=== PATIENT | male | born 1930 | race Caucasian/White ===

== ENCOUNTER 2016-09-18 15:39 | Inpatient (IN) | payer OTHER, MEDICARE ==
--- NOTE | ~2016-09-18 | CN ---
Consultation Report [facility] [address] [place]. [address] NAME: ZA LEIGH : 31 STATUS : ADM IN [facility]#: [id number] AGE: 85 ADM/REG DATE : 09/18/16 MR#: [id number] REPORT SERV DATE: 09/19/16 DICTATED BY: RIMA ALEJANDRO DATE: 09/19/16 REPORT STATUS : Draft TRANSCRIBED BY: MODEvelio DATE: 09/19/16 NEUROLOGICAL CONSULTATION-EVALUATION DATE OF CONSULTATION: 09/19/2016 REASON FOR CONSULTATION: Probable cerebrovascular accident, history of atrial fibrillation. HISTORY OF PRESENT ILLNESS: This is an 85-year-old male with known history of atrial fibrillation, carotid artery disease, hypertension, hyperlipidemia, ischemic cardiomyopathy with history of recurrent paroxysmal atrial fibrillation, on dabigatran, who was brought by the patient's family after it was noted that the patient was confused. Although, the patient has mild underlying dementia, as per family, the patient was acting differently which alerted the patient's children, one of whom is a retired nurse, said the patient may be having stroke-like symptoms. On admission to the emergency room, the patient's CT scan of the head showed no evidence of acute changes except for diffuse atrophy. The symptoms apparently had improved upon arrival to the emergency room. The patient however was noted to be performing the test in the emergency room appropriately, especially showing possible left-sided weakness. PAST MEDICAL HISTORY: Also significant for history of obstructive sleep apnea, the patient has not been compliant with CPAP, hypertension, hyperlipidemia, history of ventricular tachycardia, prior AICD placement, status post CABG, ischemic cardiomyopathy, ejection fraction of 40% currently, coronary artery disease. The patient had been on Coumadin; however, on admission, the patient's medication do not list Coumadin. PAST SURGICAL HISTORY: Pacemaker defibrillator placement, cardiac cath, CABG x3 in 2004, left cataract surgery, EP study in 2010, history of appendectomy. FAMILY HISTORY: Significant history of stroke in patient's mother. The patient's father had history of heart attack. SOCIAL HISTORY: The patient lives alone, however, is very close to the premises of his children and they monitor him on the video monitor. The patient refused to move into a facility or move to live with his children. His 12 years ago. The patient's daughter stated that the patient has been depressed since that time. He does have two dogs whom the patient is attached to and who sleep with him. He is a retired , served in [place], and the patient has advance directives and is a DNR. On admission, the patient's EKG showed atrial paced left bundle, which was consistent with prior EKGs. ALLERGIES: NO KNOWN ALLERGIES. HOME MEDICATIONS: Included aspirin 81 mg, dabigatran, atorvastatin 80 mg, carvedilol 25 mg b.i.d., Lyrica 150 b.i.d., sotalol 80 mg daily, Namenda 10 mg b.i.d. - generic, multivitamin Consultation Report [address] [place]. [address] NAME: ZA LEIGH : 31 STATUS : ADM IN [facility]#: [id number] AGE: 85 ADM/REG DATE : 09/18/16 MR#: [id number] REPORT SERV DATE: 09/19/16 DICTATED BY: RIMA ALEJANDRO DATE: 09/19/16 REPORT STATUS : Draft TRANSCRIBED BY: LUIZ DATE: 09/19/16 without minerals and acetamide, vitamin B complex and C, pantoprazole 40 mg. REVIEW OF SYSTEMS: As per the patient's family, the patient has been followed by Dr. Ernandez, who is his neurologist, was diagnosed with dementia approximately three years, has been on amantadine. The patient's last appointment was six months ago. The patient was scheduled to see Dr. Ernandez in the next few days. The patient's daughters noted that the patient had increased cough in the last day. Also as per one of the patient's daughters, his urine has been discolored "brown." Other review of systems was negative. The patient has been independent and active. As mentioned above, the patient has obstructive sleep apnea, does not use his CPAP, does not have any difficulty with bowel or bladder control, and the patient had no recent complaints. The rest of 14 points of review of system was negative. No history of recent head trauma or falling. PHYSICAL EXAMINATION: VITAL SIGNS: Blood pressure 133/62, pulse was 68, respirations 18, temperature was 98.6. HEAD AND NECK: Showed him to be normocephalic. There was no evidence of trauma. Auscultation of the neck showed no evidence of bruits. The patient appeared asleep, was difficult to arouse although intermittently would respond appropriately answering questions, knew his daughters' names. He would readily fall asleep, however at times, appeared to resist eye opening. The patient did not appear in acute distress. CHEST: Symmetrical. LUNGS: Showed decreased breath sounds at the bases. ABDOMEN: Soft, nontender. EXTREMITIES: Showed no clubbing, cyanosis. There was no peripheral edema. NEUROLOGICAL: With the patient being not cooperative, was incomplete. However, at this point, it appears that the patient did not have any focal deficits on cranial nerve examination. His eyes appeared midline. Pupils were reactive to light and accommodation. Extraocular movements, the patient directed eyes to the voice and his eyes crossed midline. MOTOR EXAM: Showed questionable decrease of spontaneous movements in the line of the left arm. Both lower extremities were moving symmetrically. Deep tendon reflexes were decreased in lower extremities. As per patient's daughter, the patient has history of "peripheral neuropathy," it is not clear from what source, could be medication related. The patient is not diabetic. LABORATORY STUDIES: On admission showed sodium 143, potassium 3.9, chloride 105, BUN 20, creatinine 0.85, glucose 93, magnesium 2.4. WBC count 5.4, hemoglobin 13.3, hematocrit 40.5, platelet count 101,000. Troponin 0.05. Portable chest x-rays showed no focal abnormalities, cardiac silhouette is in upper limit of normal, status post CABG, read as no evidence of cardiopulmonary problems. The patient's CT scan of the head as mentioned above, showed no acute changes. Comprehensive metabolic as mentioned above. CPK-MB fraction 0.05, slightly elevated. CPK was 112. Magnesium 2.4. 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 The Consultation Report [address] [place]. [address] NAME: ZA LEIGH : 31 STATUS : ADM IN PAT#: [id number] AGE: 85 ADM/REG DATE : 09/18/16 MR#: [id number] REPORT SERV DATE: 09/19/16 DICTATED BY: RIMA ALEJANDRO DATE: 09/19/16 REPORT STATUS : Draft TRANSCRIBED BY: LUIZ DATE: 09/19/16 patient has increased risk of cerebrovascular accident, which include atrial fibrillation, paroxysmal atrial fibrillation, history of pacemaker defibrillator placement, status post CABG, and evidence of coronary artery disease. Workup for stroke should proceed with imaging studies, limited from pacemaker and defibrillator presence. We will recommend to obtain carotid ultrasound and monitor the patient for changes in his neurological status. Serum lipid panel. Obtain additional history concerning the patient's medication. Decrease patient's Lyrica if the patient has been on it, do not stop Lyrica abruptly. The patient may benefit from decreasing couple of doses to monitor his response to see if the patient becomes more alert. EEG to rule out the presence of encephalopathy. Continue telemetry. UA to rule out urinary tract infection and ABGs to rule out hypoxemia. The patient has history of obstructive sleep apnea, has been noncompliant with his CPAP, and we will monitor the patient with you. Thank you for allowing us to participate in this patient's care. ALYSSA/LUIZ Rima Alejandro MD / [id number] CC: Cristal Coppola M.D. UNKNOWN
--- NOTE | ~2016-09-18 | HP ---
History And Physical [address] [place]. [address] NAME: ZA GUERRERO : 32 STATUS : ADM IN [facility]#: [id number] AGE: 85 ADM/REG DATE : 09/18/16 MR#: [id number] REPORT SERV DATE: 09/18/16 DICTATED BY: MARIA ESTHER BECERRA DATE: 09/18/16 REPORT STATUS : Draft TRANSCRIBED BY: MODEvelio DATE: 09/18/16 DATE OF ADMISSION: 09/18/2016 CHIEF COMPLAINT: Left arm weakness and mild confusion. HISTORY OF PRESENT ILLNESS: The patient is an 85-year-old male with past medical history of AFib; pacer; V-tach history; peripheral vascular disease; carotid artery disease; hypertension; hyperlipidemia; chronic back pain; ischemic cardiomyopathy, EF 40% through 45%; paroxysmal atrial fibrillation, on Coumadin, who presents after having acute change in mental status and weakness. Symptoms were majority on left side, but last normal seen was last night. He was actually confused and to the point where he was somewhat unrest, which was atypical for his normal presentation. The patient denies any pain, discomfort, or radiating symptoms. No nausea, vomiting, diarrhea, fever, chills, shortness of breath, or chest pains. There is no worsening or relieving of symptoms. Symptom is actually improved since his arrival at [facility] from initial presentation with an evaluation by emergency room to evaluation by disposition as the strength becomes more improved, he is able to perform. Improved vocal strength, but does have notable neuro deficits in the form of mcwzzs-nm-duda and diplopia. ADDITIONAL REVIEW OF SYSTEMS: A 10-point review of systems negative per the patient except for confusion-type changes and diplopia changes. FAMILY HISTORY: PVD, carotid artery disease, obstructive sleep apnea not using CPAP, hypertension, hyperlipidemia, osteoarthritis, chronic back pain, coronary artery disease status post CABG, ischemic cardiomyopathy, EF 40% through 45%, V-tach history, prior AICD, paroxysmal AFib on chronic Coumadin, GERD, BPH. SURGICAL HISTORY: AICD, appendectomy, hemorrhoidectomy, cardiac cath multiple times, CABG x3 in 2004, left knee surgery, EP study in 2010, left cataract removal. FAMILY HISTORY: Stroke in mother. Father, heart attack. SOCIAL HISTORY: Lives alone. Quit smoking in the 80s. Quit alcohol in 80s. . approximately 12 years ago, which was fairly hard on the patient per reports from family. Has tea, 2 hours. Retired , served in [place] and retired regional owner operator truck driver. The patient does have advanced directives DNR, confirmed by family member, daughter, Natasha Guerrero, , [facility], [facility], and propagator laborer Dr. Costello and Dr. Thompson. EKG: Atrial paced, left bundle consistent with prior EKGs. ALLERGIES: NO KNOWN DRUG ALLERGIES. HOME MEDICATIONS: Alfuzosin, aspirin, B-complex, calcium with vitamin D, Coreg, Pradaxa, Aricept, Zetia, Lasix, Namenda, Prilosec, potassium tablet, Lyrica, Betapace, Icaps. PHYSICAL EXAMINATION: History And Physical [address] [address] NAME: ZA GUERRERO : 32 STATUS : ADM IN [facility]#: [id number] AGE: 85 ADM/REG DATE : 09/18/16 MR#: [id number] REPORT SERV DATE: 09/18/16 DICTATED BY: MARIA ESTHER BECERRA DATE: 09/18/16 REPORT STATUS : Draft TRANSCRIBED BY: LUIZ DATE: 09/18/16 VITAL SIGNS: The patient's blood pressure 131/60, temperature 99.7, pulse 71, respirations 18, O2 sats 94% on room air. GENERAL: No acute distress. Calm, pleasant. HEAD: Normocephalic, atraumatic. EYES: No scleral icterus. EOMI. ENT: Nares patent. Tongue with mild left-sided deviation. RESPIRATORY: Clear to auscultation. No wheezes. CV: Regular rate. Mild systolic ejection murmur. Pulses are palpable bilaterally. GI: Soft, nontender, nondistended. Bowel sounds positive. : Deferred. MUSCULOSKELETAL: Does move all extremities. Symmetrical bellperson in upper extremities but bilateral lower extremities somewhat weaker approximately 4/5. SKIN: Warm and dry. LYMPH: No cervical lymphadenopathy. HEME: No bleeding or bruising. NEURO: Alert to person and family members, not so much situation or events from earlier today. Speech appears more clear with normal vocal amira, questions sometimes inappropriate, but this is importantly improved per family. Family is feeding patient and the patient is tolerating bedside swallow with small bites. No coughing or clearing after feed in room small doses. Ethysc-ve-vpae, the patient has difficulty in locating nose, but is able to do finger touch with closure of each eye; however, with opening both eyes, has double to triple vision. The patient does have loss of or decreased acuity, one, secondary to not having his glasses but two, also in right lower right eye quadrant with decreased visual acuity at this site. Strength appears symmetrical in upper hands which apparently is improved from initial presentation,, but lower extremities still fairly weak. Gait not tested at this time. PSYCH: Appears calm pleasant with appropriate mood. LABORATORY DATA: WBC 5.4, hemoglobin and hematocrit 13.3 and 40.5, MCV 100.5, platelets 101, INR 1.3. BMP grossly within normal limits. LFTs are normal limits. Troponin 0.03. Portable chest, no cardiopulmonary disease. Brain without contrast, noted atrophy. No acute findings. ASSESSMENT AND PLAN: 1. Likely cerebrovascular accident. 2. Macrocytosis. 3. Thrombocytopenia. 4. Coronary artery disease with left bundle-branch and atrial paced. 5. Ventricular tachycardia history with AICD and pacer. 6. Paroxysmal atrial fibrillation, on anticoagulation. PLAN: 1. For possible CVA. Order set initiated. PT, OT, ST evaluation. No acute intervention for tPA, is not currently a candidate due to symptoms, last being seen overnight at normal state. He is having improvement in neuro function, knqndz-bv-hccl improvement. We will Neurology evaluation in a.m. The patient may not be candidate for MRI secondary to AICD history, we will order carotid ultrasound. The patient has had History And Physical [address] [address] NAME: ZA GUERRERO : 32 STATUS : ADM IN [facility]#: [id number] AGE: 85 ADM/REG DATE : 09/18/16 MR#: [id number] REPORT SERV DATE: 09/18/16 DICTATED BY: MARIA ESTHER BECERRA DATE: 09/18/16 REPORT STATUS : Draft TRANSCRIBED BY: MODL DATE: 09/18/16 history of carotid disease, and echocardiogram, the patient reported to have history of ischemic cardiomyopathy, EF approximately mid 40s. 2. Microcytosis. Check B12 folate. 3. Thrombocytopenia. Monitored, on Pradaxa. 4. Coronary artery disease. History left bundle-branch, on statin, aspirin. 5. Ventricular tachycardia history with AICD monitor on telemetry. 6. Paroxysmal atrial fibrillation, on anticoagulation. Rate controlled. 7. Ischemic cardiomyopathy. Check echocardiogram, not acute decompensation. 8. Code status DNR/DNI confirmed. Additionally confirmed with daughter CRISTAL, Prior Snow, advance directives on chart and placed. I have discussed the case and updated family member, Ms. Natasha Guerrero, who will be traveling from [place], at # [phone], who is also his power of sales warehouse driver and confirms the patient's status. DISPOSITION: Pending. FINDINGS: From above. DDN/MODL Maria Esther Becerra MD / [id number] CC: Cristal Coppola M.D.
--- NOTE | ~2016-09-18 | DS ---
Discharge Summary [facility] [address] [place]. [address] NAME: ZA LEIGH : 32 STATUS : DIS IN PAT#: [id number] AGE: 85 ADM/REG DATE : 09/18/16 MR#: [id number] REPORT SERV DATE: 09/23/16 DICTATED BY: NEWTON MCDONALD DATE: 09/21/16 REPORT STATUS : Draft TRANSCRIBED BY: MODL DATE: 09/21/16 ADMISSION DATE: 09/18/2016 DISCHARGE DATE: CONSULTANTS: Rima Alejandro MD and Binu Ruiz MD, Neurology. DISCHARGE DIAGNOSES: 1. Acute metabolic encephalopathy, unclear etiology. 2. Acute on chronic systolic congestive heart failure. 3. Previous coronary bypass. 4. Paroxysmal atrial fibrillation with previous ventricular tachycardia with an AICD implanted September 2010. 5. Peripheral arterial disease involving left carotid artery with category 2 disease. 6. Hypertension. 7. 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 8. History of obstructive sleep apnea, not on CPAP. 9. Chronic stable thrombocytopenia. 10.Chronic macrocytosis. 11.Chronic low back pain. 12.Mild hypokalemia. HISTORY: This patient was brought to the emergency room at [facility] with complaints of confusion and possible left-sided weakness. He was referred to our team for inpatient care. Imaging included CT scan of the brain on 09/18/2016 which revealed atrophy, no acute abnormalities. He did not get an MRI because of his AICD. He had a repeat CT brain without contrast on 09/20/2016 showing stable moderate cortical atrophy and moderate chronic deep white matter changes. Carotid ultrasound on 09/19/2016 revealed left internal carotid artery with a category 2 disease, 50 to 69% stenosis with some plaque at the bifurcation. The right carotid had category 1 disease. Bilateral carotids with antegrade flow. Echocardiogram performed on 09/20/2016 left atrial size 3.6 cm, left ventricular ejection fraction 25% with moderate diastolic dysfunction, moderate mitral and tricuspid regurgitation. Negative bubble study. This is reduced from his previous ejection fraction of 43% on his echo 08/25/2010. Ideally, we wanted to add an CRESENCIO inhibitor and ARB, but his daughter who is an excellent historian recalls that the patient was on 2.5 mg of lisinopril but could not tolerate it because his blood pressures were dropping into the 90 systolic, and he was lightheaded. He is otherwise on medical therapy at this time, and we are adding Lipitor for both congestive heart failure as well as stroke prophylaxis. There was some concern that the patient might have pneumonia; however, chest x-ray x2 normal. Procalcitonin is normal. The patient has no cough. No dyspnea at this time other than minimal cough. He is ambulating but felt by Physical Therapy to need inpatient rehab. DISCHARGE MEDICATIONS: Uroxatral 10 mg daily in the evening; aspirin 81 mg daily; Lipitor 80 mg in the evening; Coreg 25 mg b.i.d., hold if pulse less than 60 or systolic less than 105; Discharge Summary [address] [place]. [address] NAME: ZA LEIGH : 32 STATUS : DIS IN PAT#: [id number] AGE: 85 ADM/REG DATE : 09/18/16 MR#: [id number] REPORT SERV DATE: 09/23/16 DICTATED BY: NEWTON MCDONALD DATE: 09/21/16 REPORT STATUS : Draft TRANSCRIBED BY: LUIZ DATE: 09/21/16 Os-Greg 500 mg b.i.d.; Pradaxa 150 mg twice a day which is a chronic medicine because of his atrial fibrillation; Aricept 20 mg daily; Zetia 10 mg daily; Lasix 40 mg daily; Namenda 10 mg twice a day; omeprazole 20 mg daily as a chronic medicine; K-Tab 10 mEq daily; Lyrica 150 mg twice a day; Betapace 80 mg daily; Tylenol 650 q.6 hours p.r.n. pain; vitamin B tablet twice a day; ICaps AREDS soft gel one capsule twice a day. Rehab is instructed for PT and OT and weekly BMP and mag. I spent 45 minutes today with the patient and with his granddaughter and with his daughter and with case management. ADDENDUM: Please refer to yesterday's full discharge summary. The only reason the patient was kept over one additional day was for final arrangements to be made between his rehab and his insurance. Please refer to the dictated discharge summary yesterday for all the details of his illness and his discharge medication. JEREMIAH/LUIZ Newton Mcdonald M.D. / [id number] CC: Kamila Bhardwaj M.D. [facility]
[2016-09-18 13:04] LABS: BASOPHILS 0.4 %; BASOPHILS ABSOLUTE 0.02 10/3/uL (0.0-0.16); EOSINOPHILS 0.7 %; EOSINOPHILS ABSOLUTE 0.04 10/3/uL (0.0-0.53); HEMATOCRIT 40.5 % (40.0-51.0); HEMOGLOBIN 13.3 g/dL (13.6-17.8); LYMPHOCYTES 16.8 %; MANUAL DIFF NO %; MEAN CORPUS HGB CONC 32.8 g/dL (32.0-36.0); MEAN CORPUSCULAR VOLUME 100.5 fL (80-100); MEAN PLATELET VOLUME 9.2 fL (9.2-13.0); MONOCYTES 10.1 %; MONOCYTES ABSOLUTE 0.54 10/3/uL (0.21-1.20); NEUTROPHILS ABSOLUTE 3.85 10/3/uL (2.02-8.40); PLATELET COUNT 101 10/3/uL (150-400); RBC DISTRIBUTION WIDTH 13.9 % (12.0-16.0); RED CELL COUNT 4.03 10/6/uL (4.7-6.1); WHITE BLOOD CELLS 5.4 10/3/uL (4.5-10.5)
[2016-09-18 13:12] LABS: INTERNATIONAL NORMAL RATI 1.3 UNITS (-); PARTIAL THROMBO TIME 42.1 SEC (22.5-37.2)
[2016-09-18 13:15] LABS: PROTIME (NOT ORD) 16.1 SEC (12.0-14.5)
[2016-09-18 13:19] LABS: A/G RATIO 0.9 (0.7-1.9); ALBUMIN 3.4 G/DL (3.5-5.0); BUN (BLOOD UREA NITROGEN) 20 MG/DL (6-23); CALCIUM, SERUM 8.6 MG/DL (8.5-10.4); CHLORIDE, SERUM 105 MMOL/L (96-112); CO2 (CARBON DIOXIDE) 30 MMOL/L (24-34); CREATININE 0.85 MG/DL (0.70-1.30); GFR AFRICAN AMERICAN 93 ML/MIN (>=60); GFR NON AFRICAN AMERICAN 80 ML/MIN (>=60); GLOBULIN 3.7 G/DL (2.5-4.1); GLUCOSE, SERUM 93 MG/DL (60-99); POTASSIUM, SERUM 3.9 MMOL/L (3.5-5.3); SGOT(AST) 21 U/L (5-40); SGPT(ALT) 25 U/L (5-65); SODIUM, SERUM 143 MMOL/L (135-148); TOTAL BILIRUBIN 0.7 MG/DL (0-1.2); TOTAL PROTEIN 7.1 G/DL (6.0-8.5); TROPONIN I 0.03 NG/ML (<0.05)
[2016-09-18 13:20] LABS: ALKALINE PHOSPHATASE 72 U/L (45-117)
[~2016-09-18 15:39] MED LIST: AGELESS MALE PO; ALEVE220 MG PO; ARICEPT5 PO; ASAB PO; BETA PROSTATE PO; BETAPACE80 PO; CAP25 PO; CENTRUM TAB1 TAB PO; CO Q-10100 MG PO; CO-Q 10 PO; COREG25 PO; COREG3 PO; COUMADIN6 MG PO; EYE CAP PO; FISH OIL1200 MG PO; FISH-EPA1000 MG PO; FLOMAX4 PO; GRALISE300 MG PO; ICAPS AREDS SO1 EACH PO; ICAPS PO; IRON; IRON325 MG PO; JANTOVEN6 MG PO; K-TABS10 MEQ PO; KLOR-CON M1010 MEQ PO; L-LYSINE500 M1 PO; L40 PO; MAGNESIUM OXIDE PO; MAGNESIUM PO; MAXIMUM D3 PO; NATURA2 OP; NEUR300 PO; OMAX PO; OMEGA Q PLUS PO; PRILO PO; PRIN2.5 PO; RED RICE YEAST PO; SPIRIVA INH; SUPER B-100 PO; VITAMIN B COMPLEX PO; VITAMIN B PO; ZETIA PO; ZOVIRAX400 MG PO; [UNRECOGNIZED DRUG - OTHER]; [UNRECOGNIZED DRUG - OTHER]; [UNRECOGNIZED DRUG - OTHER]; [UNRECOGNIZED DRUG - OTHER] PO; [UNRECOGNIZED DRUG - OTHER] PO; [UNRECOGNIZED DRUG - OTHER] PO
[2016-09-18] MEDS ORDERED: COREG25 PO (15:48)
[2016-09-18] MEDS ORDERED: ZETIA PO (15:48)
[2016-09-18] MEDS ORDERED: L40 PO (15:49)
[2016-09-18] MEDS ORDERED: PRILO PO (15:49)
[2016-09-18] MEDS ORDERED: KLOR-CON M1010 MEQ PO (15:49)
[2016-09-18] MEDS ORDERED: VITAMIN B PO (15:49)
[2016-09-18] MEDS ORDERED: PRADAXA150 MG PO (15:50)
[2016-09-18] MEDS ORDERED: UROXATRAL PO (15:50)
[2016-09-18] MEDS ORDERED: NAMENDA10 MG PO (15:50)
[2016-09-18] MEDS ORDERED: LYRICA150 MG PO (15:50)
[2016-09-18] MEDS ORDERED: CALTRA600D PO (15:51)
[2016-09-18] MEDS ORDERED: ICAPS AREDS SO1 EACH PO (15:51)
[2016-09-18] MEDS ORDERED: ARICEPT10 PO (15:51)
[2016-09-18] MEDS ORDERED: BETAPACE80 PO (15:51)
[2016-09-18] MEDS ORDERED: ASAB PO (15:52)
[2016-09-18 22:00] LABS: WBC (NOT ORDERED) (RFLEX) 0 (0-5)
[2016-09-18 22:11] LABS: ASCORBIC ACID (UR NOT ORDER) 40 (NEG); BILIRUBIN, URINE NEGATIVE (NEG); ER URINALYSIS TAT 0 Hrs 13 Mins; KETONE, URINE TRACE MG/DL (NEG); LEUKOCYTE ESTERASE(NOT OR NEG (NEG); NITRITE (URINE) NEG (NEG)
[2016-09-18 22:55] LABS: CHOL/HDL RATIO(NOT ORDER) 2.3 (0-5); CHOLESTEROL 166 MG/DL (< 200); HDL CHOLESTEROL 73 MG/DL (> 39); LDL CHOLESTEROL 78 MG/DL (< 130); NON-HDL CHOLESTEROL 93 MG/DL (< 160); TRIGLYCERIDE 79 MG/DL (< 150)
[2016-09-18 23:06] LABS: CK-MB 1.2 NG/ML; CPK 114 U/L (0-200)
[2016-09-18 23:09] LABS: TROPONIN I 0.05 NG/ML (<0.05)
[2016-09-19 06:21] LABS: CK-MB 0.7 NG/ML; CPK 112 U/L (0-200)
[2016-09-19 06:22] LABS: TROPONIN I 0.05 NG/ML (<0.05)
[2016-09-19 09:57] LABS: ALLENS TEST Pos; BE (BASE EXCESS) 2.8 MEQ/L (0 +/- 2.5); CARBOXYHEMOGLOBIN 0.4 % (0-3); HCO3 (ACTUAL BICARBONATE) 26.3 MEQ/L (23-27); HEMOBLOGIN CONTENT 13.5 G/DL (14-18); INSTRUMENT SERIAL # 8083; METHEMOGLOBIN 0.3 % (0-3); O2 CONTENT 17.7 VOL% (18-24); PCO2 (CO2 TENSION) 37 MMHG (35-45); PO2 (O2 TENSION) 74 MMHG (79-93); SAMPLE Arterial; pH 7.47 (7.37-7.43)
[2016-09-19 12:47] LABS: CPK 165 U/L (0-200)
[2016-09-19 12:48] LABS: CK-MB < 0.5 NG/ML
[2016-09-20 06:08] LABS: BASOPHILS 0.2 %; BASOPHILS ABSOLUTE 0.01 10/3/uL (0.0-0.16); EOSINOPHILS 0.4 %; EOSINOPHILS ABSOLUTE 0.02 10/3/uL (0.0-0.53); HEMATOCRIT 39.7 % (40.0-51.0); HEMOGLOBIN 13.3 g/dL (13.6-17.8); LYMPHOCYTES 28.4 %; LYMPHOCYTES ABSOLUTE 1.36 10/3/uL (0.67-4.30); MANUAL DIFF NO %; MEAN CORPUS HGB CONC 33.5 g/dL (32.0-36.0); MEAN CORPUSCULAR HEMOGLOB 34.2 pg (26.0-34.0); MEAN CORPUSCULAR VOLUME 102.1 fL (80-100); MEAN PLATELET VOLUME 9.6 fL (9.2-13.0); MONOCYTES 11.5 %; MONOCYTES ABSOLUTE 0.55 10/3/uL (0.21-1.20); NEUTROPHILS 59.5 %; NEUTROPHILS ABSOLUTE 2.85 10/3/uL (2.02-8.40); PLATELET COUNT 80 10/3/uL (150-400); RBC DISTRIBUTION WIDTH 13.8 % (12.0-16.0); RED CELL COUNT 3.89 10/6/uL (4.7-6.1); WHITE BLOOD CELLS 4.8 10/3/uL (4.5-10.5)
[2016-09-20 06:21] LABS: BUN (BLOOD UREA NITROGEN) 21 MG/DL (6-23); CALCIUM, SERUM 8.3 MG/DL (8.5-10.4); CHLORIDE, SERUM 111 MMOL/L (96-112); CREATININE 0.85 MG/DL (0.70-1.30); GFR AFRICAN AMERICAN 93 ML/MIN (>=60); GFR NON AFRICAN AMERICAN 80 ML/MIN (>=60); GLUCOSE, SERUM 102 MG/DL (60-99); POTASSIUM, SERUM 3.7 MMOL/L (3.5-5.3); SODIUM, SERUM 146 MMOL/L (135-148)
[2016-09-20 06:23] LABS: CO2 (CARBON DIOXIDE) 25 MMOL/L (24-34)
[2016-09-20 10:12] LABS: ASCORBIC ACID (UR NOT ORDER) 40 (NEG); BILIRUBIN, URINE NEGATIVE (NEG); KETONE, URINE 20 MG/DL (NEG); LEUKOCYTE ESTERASE(NOT OR NEG (NEG); WBC (NOT ORDERED) (RFLEX) 2 (0-5)
[2016-09-20 18:16] LABS: ULTRASENSITIVE TSH 0.259 MCIU/ML (0.358-3.740)
[2016-09-20 19:18] LABS: PROCALCITONIN <0.05 ng/mL (<0.5)
[2016-09-21 06:27] LABS: BASOPHILS 0.2 %; BASOPHILS ABSOLUTE 0.01 10/3/uL (0.0-0.16); EOSINOPHILS 3.6 %; EOSINOPHILS ABSOLUTE 0.17 10/3/uL (0.0-0.53); HEMATOCRIT 38.3 % (40.0-51.0); HEMOGLOBIN 12.8 g/dL (13.6-17.8); IMMATURE GRANULOCYTES 0.2 %; IMMATURE GRANULOCYTES ABSOLUTE 0.01 10/3/uL (0.0-0.11); LYMPHOCYTES 27.2 %; LYMPHOCYTES ABSOLUTE 1.29 10/3/uL (0.67-4.30); MANUAL DIFF NO %; MEAN CORPUS HGB CONC 33.4 g/dL (32.0-36.0); MEAN CORPUSCULAR HEMOGLOB 33.8 pg (26.0-34.0); MEAN CORPUSCULAR VOLUME 101.1 fL (80-100); MEAN PLATELET VOLUME 9.4 fL (9.2-13.0); MONOCYTES 10.1 %; MONOCYTES ABSOLUTE 0.48 10/3/uL (0.21-1.20); NEUTROPHILS 58.7 %; NEUTROPHILS ABSOLUTE 2.78 10/3/uL (2.02-8.40); PLATELET COUNT 83 10/3/uL (150-400); RBC DISTRIBUTION WIDTH 13.3 % (12.0-16.0); RED CELL COUNT 3.79 10/6/uL (4.7-6.1); WHITE BLOOD CELLS 4.7 10/3/uL (4.5-10.5)
[2016-09-21 06:46] LABS: BUN (BLOOD UREA NITROGEN) 20 MG/DL (6-23); CHLORIDE, SERUM 107 MMOL/L (96-112); CO2 (CARBON DIOXIDE) 28 MMOL/L (24-34); CREATININE 0.88 MG/DL (0.70-1.30); FREE T4 1.12 NG/DL (0.76-1.46); GFR AFRICAN AMERICAN 91 ML/MIN (>=60); GFR NON AFRICAN AMERICAN 79 ML/MIN (>=60); GLUCOSE, SERUM 88 MG/DL (60-99); POTASSIUM, SERUM 3.4 MMOL/L (3.5-5.3); SODIUM, SERUM 146 MMOL/L (135-148)
[2016-09-21 06:47] LABS: ULTRASENSITIVE TSH 0.811 MCIU/ML (0.358-3.740)
[2016-09-21 07:17] LABS: PROCALCITONIN 0.08 ng/mL (<0.5)
[2016-09-21 07:25] LABS: SED RATE 28 MM/HR (0-15)
[2016-09-26 20:05] LABS: THIAMINE 28.7 nmol/L (())
[2016-11-15] MEDS ORDERED: MAXIMUM D3 PO (09:58)
[2016-11-15] MEDS ORDERED: SUPER B COMP PO (09:59)
== END 2016-09-22 14:13 | DRG 64 ==
LOC: ER 15:39 → 1SO 16:31
PROVIDERS: Nurse Practitioner; Psychiatry & Neurology Neurology; Student in an Organized Health Care Education/Training Program
DX: I63.9 Cerebral infarction, unspecified (principal); G93.41 Metabolic encephalopathy; J69.0 Pneumonitis due to inhalation of food and vomit; I50.23 Acute on chronic systolic (congestive) heart failure; G81.94 Hemiplegia, unspecified affecting left nondominant side; D69.6 Thrombocytopenia, unspecified; I48.0 Paroxysmal atrial fibrillation; J44.9 Chronic obstructive pulmonary disease, unspecified; I25.5 Ischemic cardiomyopathy; I25.10 Atherosclerotic heart disease of native coronary artery without angina pectoris; I11.0 Hypertensive heart disease with heart failure; I44.7 Left bundle-branch block, unspecified; G30.1 Alzheimer's disease with late onset; Z66 Do not resuscitate; I73.9 Peripheral vascular disease, unspecified; G89.29 Other chronic pain; E87.6 Hypokalemia; F02.80 Dementia in other diseases classified elsewhere, unspecified severity, without behavioral disturbance, psychotic disturbance, mood disturbance, and anxiety; I77.89 Other specified disorders of arteries and arterioles; M54.5 Low back pain; D75.89 Other specified diseases of blood and blood-forming organs; G47.33 Obstructive sleep apnea (adult) (pediatric); E78.5 Hyperlipidemia, unspecified; I25.2 Old myocardial infarction; Z91.19 Patient's noncompliance with other medical treatment and regimen; Z87.891 Personal history of nicotine dependence; Z79.82 Long term (current) use of aspirin; Z79.01 Long term (current) use of anticoagulants; Z95.810 Presence of automatic (implantable) cardiac defibrillator; Z95.1 Presence of aortocoronary bypass graft; Z79.899 Other long term (current) drug therapy; Z91.81 History of falling
CPT/HCPCS: 36600; 70450; 71010; 80048; 80053; 80061; 81001; 82140; 82550; 82553; 82607; 82746; 82805; 83036; 83735; 83880; 84145; 84425; 84439; 84443; 84484; 85025; 85610; 85652; 85730; 86140; 87449; 92523-GN; 92610-GN; 93005; 93880; 97110-GP; 97116-GP; 97162-GP; 97166-GO; 99285; A9270-GY; C8929; G8978-CL-GP; G8979-CJ-GP; G8996-CJ-GN; G8997-CJ-GN; G8998-CJ-GN; J2543; J3370; Q9957

== ENCOUNTER 2016-11-20 10:52 | Emergency (ER) | payer OTHER ==
[~2016-11-20 10:52] MED LIST changes: +ARICEPT10 PO; +CALTRA600D PO; +LYRICA150 MG PO; +NAMENDA10 MG PO; +PRADAXA150 MG PO; +SUPER B COMP PO; +UROXATRAL PO
[2016-11-20 12:14] LABS: BASOPHILS 0.1 %; BASOPHILS ABSOLUTE 0.01 10/3/uL (0.0-0.16); EOSINOPHILS 1.3 %; EOSINOPHILS ABSOLUTE 0.09 10/3/uL (0.0-0.53); HEMATOCRIT 36.2 % (40.0-51.0); IMMATURE GRANULOCYTES 0.1 %; IMMATURE GRANULOCYTES ABSOLUTE 0.01 10/3/uL (0.0-0.11); LYMPHOCYTES 14.7 %; LYMPHOCYTES ABSOLUTE 1.02 10/3/uL (0.67-4.30); MEAN CORPUS HGB CONC 33.1 g/dL (32.0-36.0); MEAN CORPUSCULAR VOLUME 102.5 fL (80-100); MEAN PLATELET VOLUME 9.9 fL (9.2-13.0); MONOCYTES 7.6 %; MONOCYTES ABSOLUTE 0.53 10/3/uL (0.21-1.20); NEUTROPHILS 76.2 %; NEUTROPHILS ABSOLUTE 5.29 10/3/uL (2.02-8.40); PLATELET COUNT 103 10/3/uL (150-400); RBC DISTRIBUTION WIDTH 13.6 % (12.0-16.0); RED CELL COUNT 3.53 10/6/uL (4.7-6.1)
[2016-11-20 12:15] LABS: MANUAL DIFF NO %
[2016-11-20 12:25] LABS: INTERNATIONAL NORMAL RATI 1.6 UNITS (-); PARTIAL THROMBO TIME 55.5 SEC (22.5-37.2)
[2016-11-20 12:29] LABS: PROTIME (NOT ORD) 19.3 SEC (12.0-14.5)
[2016-11-20 12:30] LABS: BUN (BLOOD UREA NITROGEN) 17 MG/DL (6-23); CHEST PAIN PROFILE TAT 0 Hrs 20 Mins; CHLORIDE, SERUM 106 MMOL/L (96-112); CO2 (CARBON DIOXIDE) 33 MMOL/L (24-34); CREATININE 1.06 MG/DL (0.70-1.30); GFR AFRICAN AMERICAN 74 ML/MIN (>=60); GFR NON AFRICAN AMERICAN 64 ML/MIN (>=60); POTASSIUM, SERUM 3.7 MMOL/L (3.5-5.3); SODIUM, SERUM 142 MMOL/L (135-148); TROPONIN I <0.02 NG/ML (<0.05)
[2016-11-20 12:31] LABS: CALCIUM, SERUM 8.3 MG/DL (8.5-10.4); GLUCOSE, SERUM 157 MG/DL (60-99)
== END 2016-11-20 14:00 | disposition home or self-care (01) ==
LOC: ER 10:52
PROVIDERS: Nurse Practitioner Family
DX: M79.602 Pain in left arm (principal); G89.18 Other acute postprocedural pain; I11.0 Hypertensive heart disease with heart failure; I50.9 Heart failure, unspecified; I48.91 Unspecified atrial fibrillation; Z95.1 Presence of aortocoronary bypass graft; F03.90 Unspecified dementia, unspecified severity, without behavioral disturbance, psychotic disturbance, mood disturbance, and anxiety; K21.9 Gastro-esophageal reflux disease without esophagitis; Z85.820 Personal history of malignant melanoma of skin; Z95.810 Presence of automatic (implantable) cardiac defibrillator; Z90.49 Acquired absence of other specified parts of digestive tract; Z88.5 Allergy status to narcotic agent; Z88.8 Allergy status to other drugs, medicaments and biological substances; Z79.899 Other long term (current) drug therapy; Z79.82 Long term (current) use of aspirin
CPT/HCPCS: 71010; 80048; 83605; 83735; 84484; 85025; 85610; 85730; 87040; 93971; 99285

== ENCOUNTER 2016-11-30 17:06 | Emergency (ER) | payer OTHER ==
[2016-11-30 16:04] LABS: ASCORBIC ACID (UR NOT ORDER) 40 (NEG); BILIRUBIN, URINE NEGATIVE (NEG); KETONE, URINE NEGATIVE (NEG); LEUKOCYTE ESTERASE(NOT OR NEG (NEG); NITRITE (URINE) NEG (NEG); WBC (NOT ORDERED) (RFLEX) 1 (0-5)
[2016-11-30 16:49] LABS: BASOPHILS 0.1 %; BASOPHILS ABSOLUTE 0.01 10/3/uL (0.0-0.16); EOSINOPHILS 0.6 %; EOSINOPHILS ABSOLUTE 0.07 10/3/uL (0.0-0.53); HEMATOCRIT 32.6 % (40.0-51.0); HEMOGLOBIN 10.9 g/dL (13.6-17.8); IMMATURE GRANULOCYTES 0.3 %; IMMATURE GRANULOCYTES ABSOLUTE 0.04 10/3/uL (0.0-0.11); LYMPHOCYTES ABSOLUTE 1.22 10/3/uL (0.67-4.30); MANUAL DIFF NO %; MEAN CORPUS HGB CONC 33.4 g/dL (32.0-36.0); MEAN CORPUSCULAR HEMOGLOB 33.7 pg (26.0-34.0); MEAN CORPUSCULAR VOLUME 100.9 fL (80-100); MEAN PLATELET VOLUME 10.2 fL (9.2-13.0); MONOCYTES 7.2 %; MONOCYTES ABSOLUTE 0.88 10/3/uL (0.21-1.20); NEUTROPHILS 81.8 %; NEUTROPHILS ABSOLUTE 10.04 10/3/uL (2.02-8.40); PLATELET COUNT 139 10/3/uL (150-400); RBC DISTRIBUTION WIDTH 13.8 % (12.0-16.0); RED CELL COUNT 3.23 10/6/uL (4.7-6.1); WHITE BLOOD CELLS 12.3 10/3/uL (4.5-10.5)
[2016-11-30 16:58] LABS: INTERNATIONAL NORMAL RATI 1.5 UNITS (-); PROTIME (NOT ORD) 17.7 SEC (12.0-14.5)
[2016-11-30 17:04] LABS: A/G RATIO 0.9 (0.7-1.9); ALKALINE PHOSPHATASE 73 U/L (45-117); BUN (BLOOD UREA NITROGEN) 17 MG/DL (6-23); CALCIUM, SERUM 8.2 MG/DL (8.5-10.4); CHLORIDE, SERUM 108 MMOL/L (96-112); CO2 (CARBON DIOXIDE) 33 MMOL/L (24-34); CREATININE 0.93 MG/DL (0.70-1.30); GFR AFRICAN AMERICAN 86 ML/MIN (>=60); GFR NON AFRICAN AMERICAN 75 ML/MIN (>=60); GLOBULIN 3.2 G/DL (2.5-4.1); SGPT(ALT) 19 U/L (5-65); SODIUM, SERUM 144 MMOL/L (135-148); TOTAL BILIRUBIN 0.5 MG/DL (0-1.2); TOTAL PROTEIN 6.2 G/DL (6.0-8.5)
[2016-11-30 17:08] LABS: GLUCOSE, SERUM 98 MG/DL (60-99); POTASSIUM, SERUM 4.4 MMOL/L (3.5-5.3)
[2016-11-30 17:09] LABS: SGOT(AST) 22 U/L (5-40)
[2016-12-01] MEDS ORDERED: L40 PO (07:49)
[2016-12-01] MEDS ORDERED: KLOR-CON M1010 MEQ PO (07:53)
[2016-12-01] MEDS ORDERED: BACDS PO (07:54)
[2016-12-01] MEDS ORDERED: DURICEF PO (07:55)
== END 2016-11-30 20:36 | disposition home or self-care (01) ==
LOC: ER 17:06
PROVIDERS: Emergency Medicine
DX: L03.114 Cellulitis of left upper limb (principal); Z87.891 Personal history of nicotine dependence; J44.9 Chronic obstructive pulmonary disease, unspecified; I11.0 Hypertensive heart disease with heart failure; I50.9 Heart failure, unspecified; Z95.5 Presence of coronary angioplasty implant and graft; Z95.810 Presence of automatic (implantable) cardiac defibrillator; I48.91 Unspecified atrial fibrillation; K21.9 Gastro-esophageal reflux disease without esophagitis; F03.90 Unspecified dementia, unspecified severity, without behavioral disturbance, psychotic disturbance, mood disturbance, and anxiety; Z95.1 Presence of aortocoronary bypass graft; I25.2 Old myocardial infarction; Z88.8 Allergy status to other drugs, medicaments and biological substances; Z88.5 Allergy status to narcotic agent; Z79.899 Other long term (current) drug therapy; Z79.82 Long term (current) use of aspirin
CPT/HCPCS: 71010; 80053; 81001; 83605; 83880; 84484; 85025; 85610; 87040; 93971; 96374; 99284

== ENCOUNTER 2016-12-01 06:52 | Inpatient (IN) | payer OTHER ==
--- NOTE | ~2016-12-01 | DS ---
Discharge Summary [facility] [address] [place]. [address] NAME: ZA LEIGH : 31 STATUS : DIS IN PAT#: [id number] AGE: 86 ADM/REG DATE : 12/01/16 MR#: [id number] REPORT SERV DATE: 12/06/16 DICTATED BY: DATE: REPORT STATUS : Draft TRANSCRIBED BY: MODL DATE: 12/05/16 ADMISSION DATE: 12/01/2016 DISCHARGE DATE: 12/05/2016 DISCHARGE DIAGNOSES: 1. Left arm cellulitis, resolving. 2. Ischemic cardiomyopathy/congestive heart failure, systolic. 3. Atrial fibrillation, paroxysmal. 4. Dementia. 5. Chronic thrombocytopenia. 6. Metabolic encephalopathy, resolved. CONSULTATIONS: None. PERTINENT TESTING PROCEDURES: 1. Venous Doppler, left upper extremity. Impression: No evidence of DVT or superficial venous thrombosis, left upper extremity. 2. Chest x-ray, 11/30/2016. Impression: Cardiomegaly, no acute process. ICD in place on the left. 3. Chest x-ray, 12/01/2016. Impression: Stable appearance of the chest with mild cardiomegaly. Prior CABG and pacing device in place. 4. Blood cultures x2 sites. The specimen collected 11/30/2016, final result, no growth at four days. 5. Blood cultures x2 sites. The specimen collected 12/01/2016, preliminary result, no growth at one day. CHIEF COMPLAINT UPON ADMISSION: Left upper extremity erythema. HOSPITAL COURSE: Please refer to history and physical dated 12/01/2016, provided by Dr. Jacinta Mi for complete details pertaining to the patient's initial presentation upon admission and health history. Briefly, the patient is an 86-year-old male who presented to the emergency department on 12/01/2016, with complaints of left arm redness and swelling. Per family, the patient had a conversion to an AICD pacer on 11/16/2016, under the care of Dr. Costello. Daughter reported that soon after this procedure, the patient's left arm became red and swollen. The patient was evaluated outpatient and was sent home without further intervention. Left upper extremity redness and edema continued to persist, and the patient presented to the emergency department the day prior to this admission at which time, he was diagnosed with left arm cellulitis, given one dose of Rocephin and provided a prescription of Bactrim. The patient was discharged home. Per family report, the patient continued to worsen at home and presented with increased confusion in the setting of Alzheimer's dementia and progressive weakness. The patient was admitted to [facility] for failed outpatient therapy to treat left arm cellulitis and acute metabolic encephalopathy likely secondary to ongoing infection. Discharge Summary [facility] [address] [place]. [address] NAME: ZA LEIGH : 31 STATUS : DIS IN PAT#: [id number] AGE: 86 ADM/REG DATE : 12/01/16 MR#: [id number] REPORT SERV DATE: 12/06/16 DICTATED BY: DATE: REPORT STATUS : Draft TRANSCRIBED BY: MODL DATE: 12/05/16 1. Left arm cellulitis. Exact etiology is unclear, however, it is noteworthy to mention that the patient is status post conversion to AICD on 11/16/2016. Per family report symptoms presented shortly after this procedure. The patient responded to vancomycin IV therapy. On the day of admission, the patient was deescalated to Duricef 1 g p.o. every 12 hours x5 days to complete a total of 10 days antibiotic therapy including IV antibiotics. 2. Ischemic cardiomyopathy and congestive heart failure, systolic. There were no signs or symptoms of acute exacerbation during this admission. The patient is status post conversion to AICD on 11/16/2016. The patient is to follow up with Dr. Costello 12/23/2016. At the time of discharge, left chest wall insertion site of AICD was without signs or symptoms of infection. Left upper extremity cellulitis never migrated above upper arm and there was never any communication of erythema between site of AICD and left upper extremity. 3. AFib paroxysmal. The patient has a previous history of V-TACH. The patient remained on telemetry during admission. Only recorded event was 4-beat run of V-TACH on 12/04/2016. 4. Dementia, Alzheimer's type. The patient is awake and alert, oriented to self and family. Per family report, the patient's condition is baseline upon discharge home. 5. Chronic thrombocytopenia. The patient's platelets have remained stable and are reported to be 126 on day of discharge. 6. Acute metabolic encephalopathy with this is likely secondary to infection related to left arm cellulitis. The patient's mental status has returned to baseline. DISCHARGE CONDITION: At the time of discharge, the patient is hemodynamically stable. DISCHARGED DIET: Cardiac diet. DISCHARGE MEDICATIONS: 1. Uroxatral 10 mg tablet p.o. every night. 2. Aspirin 81 mg p.o. every night. 3. Coreg 25 mg p.o. twice daily. 4. Calcium plus vitamin D 600 mg p.o. twice daily. 5. Pradaxa 150 mg p.o. twice daily. 6. Aricept 10 mg tablet, take two tablets p.o. every morning. 7. Zetia 10 mg tablet p.o. daily. 8. Lasix 40 mg tablet p.o. daily. 9. Namenda 10 mg tablet p.o. twice daily. 10.Prilosec 20 mg tablet p.o. daily. 11.Klor-Con 10 mEq p.o. daily. 12.Lyrica 150 mg tablet p.o. daily. 13.Betapace 80 mg tablet p.o. daily. 14.Duricef 1000 mg tablet p.o. every 12 hours x5 days. 15.Vitamin B tablets p.o. twice daily. 16.Vitamin A ICaps [id number] p.o. twice daily. 17.Vitamin D3 10,000 units 1 caplet p.o. weekly. DISCHARGE INSTRUCTIONS: Follow up with Dr. Costello, Cardiology 12/23/2016. Discharge Summary [address] [address] NAME: ZA LEIGH : 31 STATUS : DIS IN PAT#: [id number] AGE: 86 ADM/REG DATE : 12/01/16 MR#: [id number] REPORT SERV DATE: 12/06/16 DICTATED BY: DATE: REPORT STATUS : Draft TRANSCRIBED BY: LUIZ DATE: 12/05/16 The patient and his family member were instructed to return to the emergency department for any acute onset of fever 100.4 degrees Fahrenheit or higher lasting more than one hour, intractable chills, recurrence of left upper extremity edema and/or increase in redness, chest pain, shortness of breath or any other health concerns that are deviations from his baseline status at the time of this discharge. DICTATED BY: CARLOS Ray/LUIZ CARLOS Ray / [id number] CC: Earl Rivas II, MD
--- NOTE | ~2016-12-01 | HP ---
History And Physical [place] [address] [facility] [place]. [address] NAME: ZA LEIGH : 31 STATUS : ADM IN [facility]#: [id number] AGE: 86 ADM/REG DATE : 12/01/16 MR#: [id number] REPORT SERV DATE: 12/01/16 DICTATED BY: JASMIN MI DATE: 12/01/16 REPORT STATUS : Draft TRANSCRIBED BY: MODL DATE: 12/01/16 DATE OF ADMISSION: 12/01/2016 CHIEF COMPLAINT: Left-sided erythema. HISTORY OF PRESENT ILLNESS: The patient is a very pleasant, demented, 86-year-old white male whose daughter is at bedside. Apparently, the patient had a conversion to an AICD pacer on 11/16 under the care of Dr. Costello. The procedure was done. The daughter states soon after, his left arm became red and swollen. He was evaluated and ultimately sent home without any further intervention. She states his arm continued to be red and he actually presented to the ER yesterday. At that time, he was diagnosed with left arm cellulitis and prescribed Bactrim and also what looks like given a dose of Rocephin. He was ultimately sent home on Bactrim. He has not had any documented fevers, but he has been more confused typically. He does have dementia. He suffers from Alzheimer's. He does not recognize people or family members, but he is able to ambulate, and if prompted, he can perform some self-care activities with help, however, he has really been lying in bed for the last several days, unable to really stand this morning as he was too weak and he was confused more so than usual. Again, no documented fevers. No dysuria. He has had no nausea or vomiting. No diarrhea. He denies chest pain or cough. His daughter reports otherwise he has been doing okay. She marked the area yesterday when they left the ER and then today the redness had extended up his arms, so she felt she needed to come in. PAST MEDICAL HISTORY: 1. Atrial fibrillation, on Pradaxa. 2. V-tach with history of defibrillator. 3. PVD/carotid disease. 4. Ischemic cardiomyopathy with EF of 25%, status post pacer and defibrillator. 5. Hypertension. 6. Hyperlipidemia. 7. Alzheimer dementia. 8. GERD. 9. BPH. 10.Valvular heart disease. 11.Chronic back pain. 12.Hyperlipidemia. SURGICAL HISTORY: 1. AICD and pacer placement. 2. Appendectomy. 3. Hemorrhoid surgery. 4. Cardiac cath on multiple occasions. 5. Coronary artery bypass grafting. 6. Left knee surgery. 7. EP study. 8. Left cataract. History And Physical [address] [address] NAME: ZA LEIGH : 31 STATUS : ADM IN [facility]#: [id number] AGE: 86 ADM/REG DATE : 12/01/16 MR#: [id number] REPORT SERV DATE: 12/01/16 DICTATED BY: JASMIN MI DATE: 12/01/16 REPORT STATUS : Draft TRANSCRIBED BY: LUIZ DATE: 12/01/16 FAMILY HISTORY: His mother had stroke. His father had heart disease. ALLERGIES: PERCOCET AND STATINS. SOCIAL HISTORY: He quit smoking and drinking in the 80s. He is . He lives with his daughter. MEDICATIONS: Home meds are attached and reviewed. REVIEW OF SYSTEMS: Full 10-point review of systems is obtained. Pertinent positives are already mentioned in the HPI. PHYSICAL EXAMINATION: VITAL SIGNS: BP 101/48, sats are 98%, pulse is 61, temp 97.8. GENERAL: A well-developed elderly white male. HEENT: Normocephalic, atraumatic. Throat is clear. Mouth is normal. NECK: Supple. No JVD is noted. HEART: Regular rate and rhythm, without murmurs, rubs, or gallops. LUNGS: Grossly clear with good symmetrical air entry. ABDOMEN: Soft, nontender, and nondistended. Normal bowel sounds are noted. EXTREMITIES: Warm and dry. He has about 1+ edema, which is pedal in nature. He has normal pulses at the left wrist. SKIN: He has a redness to his left arm starting at about the wrist and extending up into the upper arm, but not to the axilla. It is swollen, it is erythematous, and it is warm to the touch and tender. Skin is otherwise intact, although he does have some scattered ecchymosis and some thin frail skin. NEUROLOGIC: He is sleepy, but he easily arouses and talks. He knows where he is, but he is not really oriented to time. He follows commands, but is often forgetful about what he is talking about. He has normal symmetrical strength of all four extremities, but he is generally weak. PSYCHIATRIC: His mood and affect are appropriate. LABORATORY AND X-RAY: Chest x-ray shows he has stable appearance of the chest with cardiomegaly and prior pacing and CABG. Sodium 144, potassium 3.4, chloride 106, CO2 of 34, BUN and creatinine are 17 and 1.02, glucose 115. LFTs are normal. Urinalysis is negative. CBC: Hemoglobin and hematocrit are 11 and 33, white count 8.7, platelets 119. EKG shows a paced rhythm. ASSESSMENT AND PLAN: 1. Left arm cellulitis, failed outpatient therapy, and given acute metabolic encephalopathy, I think it warrants admission. We will place him on IV vancomycin to cover methicillin-resistant Staphylococcus aureus. He has no history of diabetes. We will culture his blood and check a procalcitonin. We will monitor his exam. I did do some markings today to just sort of outline the area to see if extends. 2. Metabolic encephalopathy, likely secondary to ongoing infection. We will treat the underlying infection, place on fall risk precautions, and go from there. I do not History And Physical [address] [place]. [address] NAME: ZA LEIGH : 31 STATUS : ADM IN [facility]#: [id number] AGE: 86 ADM/REG DATE : 12/01/16 MR#: [id number] REPORT SERV DATE: 12/01/16 DICTATED BY: JASMIN MI DATE: 12/01/16 REPORT STATUS : Draft TRANSCRIBED BY: MODL DATE: 12/01/16 think he needs any imaging studies. 3. History of ischemic cardiomyopathy, status post conversion to AICD pacer. Clinically, he looks well compensated. He does not have edema on his chest x-ray. He has been eating and drinking quite normally. I think it warrants putting his Lasix dose back at his normal dose rather than over-diuresing when he is acutely ill with cellulitis. 4. History of peripheral arterial disease. 5. History of hypertension. Now, his daughter reports he really is never hypertensive. He is on Coreg for his coronary artery disease. We will continue that for now. 6. History of Alzheimer dementia, worse since he has been sick with cellulitis. 7. Code status. Daughter reports he is a DNR. These papers have been filled out. I think this is certainly warranted given his underlying significant dementia. 8. Deep venous thrombosis prophylaxis, he is already fully anticoagulated with Pradaxa. 9. Disposition, pending above. JANAE/LUIZ Jasmin Mi M.D. / [id number] CC: Amado Thompson M.D.
[2016-12-01] MEDS ORDERED: L40 PO (07:49)
[2016-12-01] MEDS ORDERED: KLOR-CON M1010 MEQ PO (07:53)
[2016-12-01] MEDS ORDERED: BACDS PO (07:54)
[2016-12-01] MEDS ORDERED: DURICEF PO (07:55)
[2016-12-01 08:12] LABS: BASOPHILS 0.1 %; BASOPHILS ABSOLUTE 0.01 10/3/uL (0.0-0.16); EOSINOPHILS 1.1 %; HEMATOCRIT 33.1 % (40.0-51.0); IMMATURE GRANULOCYTES 0.1 %; IMMATURE GRANULOCYTES ABSOLUTE 0.01 10/3/uL (0.0-0.11); LYMPHOCYTES 18.4 %; MEAN CORPUS HGB CONC 33.2 g/dL (32.0-36.0); MEAN CORPUSCULAR HEMOGLOB 33.5 pg (26.0-34.0); MEAN CORPUSCULAR VOLUME 100.9 fL (80-100); MEAN PLATELET VOLUME 9.3 fL (9.2-13.0); MONOCYTES 8.4 %; MONOCYTES ABSOLUTE 0.73 10/3/uL (0.21-1.20); NEUTROPHILS 71.9 %; NEUTROPHILS ABSOLUTE 6.25 10/3/uL (2.02-8.40); PLATELET COUNT 119 10/3/uL (150-400); RBC DISTRIBUTION WIDTH 13.9 % (12.0-16.0); RED CELL COUNT 3.28 10/6/uL (4.7-6.1); WHITE BLOOD CELLS 8.7 10/3/uL (4.5-10.5)
[2016-12-01 08:14] LABS: MANUAL DIFF NO %
[2016-12-01 08:19] LABS: ASCORBIC ACID (UR NOT ORDER) 40 (NEG); BILIRUBIN, URINE NEGATIVE (NEG); ER URINALYSIS TAT 0 Hrs 13 Mins; KETONE, URINE NEGATIVE (NEG); LEUKOCYTE ESTERASE(NOT OR NEG (NEG); NITRITE (URINE) NEG (NEG); WBC (NOT ORDERED) (RFLEX) 1 (0-5)
[2016-12-01 08:29] LABS: ALBUMIN 3.2 G/DL (3.5-5.0); ALKALINE PHOSPHATASE 81 U/L (45-117); BUN (BLOOD UREA NITROGEN) 17 MG/DL (6-23); CALCIUM, SERUM 8.4 MG/DL (8.5-10.4); CHLORIDE, SERUM 106 MMOL/L (96-112); CO2 (CARBON DIOXIDE) 34 MMOL/L (24-34); CREATININE 1.02 MG/DL (0.70-1.30); GFR AFRICAN AMERICAN 77 ML/MIN (>=60); GFR NON AFRICAN AMERICAN 67 ML/MIN (>=60); GLOBULIN 3.2 G/DL (2.5-4.1); GLUCOSE, SERUM 115 MG/DL (60-99); POTASSIUM, SERUM 3.4 MMOL/L (3.5-5.3); SGOT(AST) 13 U/L (5-40); SGPT(ALT) 17 U/L (5-65); SODIUM, SERUM 144 MMOL/L (135-148); TOTAL BILIRUBIN 0.7 MG/DL (0-1.2); TOTAL PROTEIN 6.4 G/DL (6.0-8.5)
[2016-12-01 13:45] LABS: PROCALCITONIN <0.05 ng/mL (<0.5)
[2016-12-02 07:33] LABS: BASOPHILS 0.2 %; BASOPHILS ABSOLUTE 0.02 10/3/uL (0.0-0.16); EOSINOPHILS 2.7 %; EOSINOPHILS ABSOLUTE 0.22 10/3/uL (0.0-0.53); HEMATOCRIT 33.7 % (40.0-51.0); IMMATURE GRANULOCYTES 0.2 %; IMMATURE GRANULOCYTES ABSOLUTE 0.02 10/3/uL (0.0-0.11); LYMPHOCYTES ABSOLUTE 1.61 10/3/uL (0.67-4.30); MEAN CORPUS HGB CONC 32.6 g/dL (32.0-36.0); MEAN CORPUSCULAR HEMOGLOB 33.4 pg (26.0-34.0); MEAN CORPUSCULAR VOLUME 102.4 fL (80-100); MEAN PLATELET VOLUME 9.6 fL (9.2-13.0); MONOCYTES 9.2 %; MONOCYTES ABSOLUTE 0.74 10/3/uL (0.21-1.20); NEUTROPHILS 67.7 %; NEUTROPHILS ABSOLUTE 5.44 10/3/uL (2.02-8.40); PLATELET COUNT 122 10/3/uL (150-400); RBC DISTRIBUTION WIDTH 13.7 % (12.0-16.0); RED CELL COUNT 3.29 10/6/uL (4.7-6.1); WHITE BLOOD CELLS 8.1 10/3/uL (4.5-10.5)
[2016-12-02 07:35] LABS: MANUAL DIFF NO %
[2016-12-02 07:36] LABS: BAND NEUTROPHILS 1 %; IMMATURE GRANS ABSOLUTE (CALC) 0.08 10/3/uL (0.0-0.11); LYMPHOCYTES 5 %; LYMPHOCYTES ABSOLUTE (CALC) 0.41 10/3/uL (0.67-4.30); METAMYELOCYTES 1 %; MONOCYTES 3 %; MONOCYTES ABSOLUTE (CALC) 0.24 10/3/uL (0.21-1.20); NEUTROPHILS ABSOLUTE (CALC) 7.37 10/3/uL (2.02-8.40); PLATELET ESTIMATE ADQ (ADEQUATE); RBC MORPHOLOGY NORM (NORMAL); SEGMENTED NEUTROPHIL (0) 90 %; TOTAL NUCLEATED CELLS 100
[2016-12-02 07:47] LABS: BUN (BLOOD UREA NITROGEN) 17 MG/DL (6-23); CALCIUM, SERUM 8.4 MG/DL (8.5-10.4); CHLORIDE, SERUM 110 MMOL/L (96-112); CO2 (CARBON DIOXIDE) 30 MMOL/L (24-34); CREATININE 0.92 MG/DL (0.70-1.30); GFR AFRICAN AMERICAN 88 ML/MIN (>=60); GFR NON AFRICAN AMERICAN 76 ML/MIN (>=60); GLUCOSE, SERUM 90 MG/DL (60-99); SODIUM, SERUM 144 MMOL/L (135-148)
[2016-12-03 05:13] LABS: BASOPHILS 0.2 %; BASOPHILS ABSOLUTE 0.01 10/3/uL (0.0-0.16); EOSINOPHILS 4.3 %; EOSINOPHILS ABSOLUTE 0.26 10/3/uL (0.0-0.53); HEMATOCRIT 31.8 % (40.0-51.0); HEMOGLOBIN 10.5 g/dL (13.6-17.8); IMMATURE GRANULOCYTES 0.2 %; IMMATURE GRANULOCYTES ABSOLUTE 0.01 10/3/uL (0.0-0.11); LYMPHOCYTES 24.3 %; LYMPHOCYTES ABSOLUTE 1.48 10/3/uL (0.67-4.30); MEAN CORPUSCULAR HEMOGLOB 33.1 pg (26.0-34.0); MEAN CORPUSCULAR VOLUME 100.3 fL (80-100); MEAN PLATELET VOLUME 9.2 fL (9.2-13.0); MONOCYTES ABSOLUTE 0.61 10/3/uL (0.21-1.20); NEUTROPHILS ABSOLUTE 3.72 10/3/uL (2.02-8.40); PLATELET COUNT 97 10/3/uL (150-400); RBC DISTRIBUTION WIDTH 13.1 % (12.0-16.0); RED CELL COUNT 3.17 10/6/uL (4.7-6.1); WHITE BLOOD CELLS 6.1 10/3/uL (4.5-10.5)
[2016-12-03 05:14] LABS: MANUAL DIFF NO %
[2016-12-03 05:28] LABS: BUN (BLOOD UREA NITROGEN) 16 MG/DL (6-23); CALCIUM, SERUM 7.9 MG/DL (8.5-10.4); CHLORIDE, SERUM 109 MMOL/L (96-112); CO2 (CARBON DIOXIDE) 28 MMOL/L (24-34); CREATININE 0.91 MG/DL (0.70-1.30); GFR AFRICAN AMERICAN 89 ML/MIN (>=60); GFR NON AFRICAN AMERICAN 77 ML/MIN (>=60); GLUCOSE, SERUM 89 MG/DL (60-99); POTASSIUM, SERUM 4.1 MMOL/L (3.5-5.3); SODIUM, SERUM 143 MMOL/L (135-148)
[2016-12-04 08:22] LABS: BASOPHILS 0.2 %; BASOPHILS ABSOLUTE 0.01 10/3/uL (0.0-0.16); EOSINOPHILS 3.1 %; EOSINOPHILS ABSOLUTE 0.18 10/3/uL (0.0-0.53); HEMATOCRIT 31.3 % (40.0-51.0); HEMOGLOBIN 10.8 g/dL (13.6-17.8); LYMPHOCYTES 19.5 %; LYMPHOCYTES ABSOLUTE 1.14 10/3/uL (0.67-4.30); MANUAL DIFF NO %; MEAN CORPUS HGB CONC 34.5 g/dL (32.0-36.0); MEAN CORPUSCULAR HEMOGLOB 33.9 pg (26.0-34.0); MEAN CORPUSCULAR VOLUME 98.1 fL (80-100); MEAN PLATELET VOLUME 9.2 fL (9.2-13.0); MONOCYTES 10.4 %; MONOCYTES ABSOLUTE 0.61 10/3/uL (0.21-1.20); NEUTROPHILS 66.8 %; NEUTROPHILS ABSOLUTE 3.92 10/3/uL (2.02-8.40); PLATELET COUNT 130 10/3/uL (150-400); RBC DISTRIBUTION WIDTH 13.1 % (12.0-16.0); RED CELL COUNT 3.19 10/6/uL (4.7-6.1); WHITE BLOOD CELLS 5.9 10/3/uL (4.5-10.5)
[2016-12-04 08:35] LABS: BUN (BLOOD UREA NITROGEN) 16 MG/DL (6-23); CALCIUM, SERUM 8.2 MG/DL (8.5-10.4); CHLORIDE, SERUM 106 MMOL/L (96-112); CO2 (CARBON DIOXIDE) 32 MMOL/L (24-34); CREATININE 0.89 MG/DL (0.70-1.30); GFR AFRICAN AMERICAN 90 ML/MIN (>=60); GFR NON AFRICAN AMERICAN 78 ML/MIN (>=60); GLUCOSE, SERUM 87 MG/DL (60-99); POTASSIUM, SERUM 3.9 MMOL/L (3.5-5.3); SODIUM, SERUM 142 MMOL/L (135-148)
[2016-12-05 06:50] LABS: BASOPHILS 0.4 %; BASOPHILS ABSOLUTE 0.02 10/3/uL (0.0-0.16); EOSINOPHILS 3.2 %; EOSINOPHILS ABSOLUTE 0.15 10/3/uL (0.0-0.53); HEMATOCRIT 31.9 % (40.0-51.0); HEMOGLOBIN 10.8 g/dL (13.6-17.8); IMMATURE GRANULOCYTES 0.2 %; IMMATURE GRANULOCYTES ABSOLUTE 0.01 10/3/uL (0.0-0.11); LYMPHOCYTES 29.6 %; LYMPHOCYTES ABSOLUTE 1.41 10/3/uL (0.67-4.30); MANUAL DIFF NO %; MEAN CORPUS HGB CONC 33.9 g/dL (32.0-36.0); MEAN CORPUSCULAR VOLUME 100.3 fL (80-100); MEAN PLATELET VOLUME 9.6 fL (9.2-13.0); MONOCYTES 12.6 %; NEUTROPHILS ABSOLUTE 2.57 10/3/uL (2.02-8.40); PLATELET COUNT 126 10/3/uL (150-400); RBC DISTRIBUTION WIDTH 13.1 % (12.0-16.0); RED CELL COUNT 3.18 10/6/uL (4.7-6.1); WHITE BLOOD CELLS 4.8 10/3/uL (4.5-10.5)
[2016-12-05 07:05] LABS: BUN (BLOOD UREA NITROGEN) 16 MG/DL (6-23); CALCIUM, SERUM 8.6 MG/DL (8.5-10.4); CHLORIDE, SERUM 106 MMOL/L (96-112); CO2 (CARBON DIOXIDE) 32 MMOL/L (24-34); GFR AFRICAN AMERICAN 90 ML/MIN (>=60); GFR NON AFRICAN AMERICAN 78 ML/MIN (>=60); GLUCOSE, SERUM 83 MG/DL (60-99); POTASSIUM, SERUM 3.8 MMOL/L (3.5-5.3); SODIUM, SERUM 142 MMOL/L (135-148)
[2016-12-05] MEDS ORDERED: CEFADROXIL1 GM PO (14:54)
[2016-12-05] MEDS ORDERED: SENTAB PO (16:12)
[2016-12-05] MEDS ORDERED: T PO (16:13)
== END 2016-12-05 16:45 | disposition home health service (06) | DRG 602 ==
LOC: ER 06:52 → ER/OF 11:49 → 4SO 11:54
PROVIDERS: Emergency Medicine; Internal Medicine; Nurse Practitioner Family
DX: L03.114 Cellulitis of left upper limb (principal); G93.41 Metabolic encephalopathy; I47.2 Ventricular tachycardia; I50.22 Chronic systolic (congestive) heart failure; I48.0 Paroxysmal atrial fibrillation; G30.9 Alzheimer's disease, unspecified; F02.80 Dementia in other diseases classified elsewhere, unspecified severity, without behavioral disturbance, psychotic disturbance, mood disturbance, and anxiety; I25.5 Ischemic cardiomyopathy; Z95.810 Presence of automatic (implantable) cardiac defibrillator; Z79.01 Long term (current) use of anticoagulants; I10 Essential (primary) hypertension; E78.5 Hyperlipidemia, unspecified; K21.9 Gastro-esophageal reflux disease without esophagitis; N40.0 Benign prostatic hyperplasia without lower urinary tract symptoms; M54.9 Dorsalgia, unspecified; G89.29 Other chronic pain; I25.10 Atherosclerotic heart disease of native coronary artery without angina pectoris; Z95.1 Presence of aortocoronary bypass graft; Z88.5 Allergy status to narcotic agent; Z88.8 Allergy status to other drugs, medicaments and biological substances; Z87.891 Personal history of nicotine dependence; Z66 Do not resuscitate; D69.6 Thrombocytopenia, unspecified
CPT/HCPCS: 71010; 80048; 80053; 80202; 81001; 83735; 84100; 84145; 85025; 87040; 93005; 96374; 99285; A9270-GY; J0690; J3370